=== PATIENT | female | born 1975 | race Asian ===

== ENCOUNTER 2019-12-31 21:03 | Observation (INO) | payer OTHER ==
[~2019-12-31] VITALS: Ht 172.7 cm; Wt 72.6 kg
== END 2019-12-31 23:21 | disposition home or self-care (01) ==
LOC: SPU 21:03
PROVIDERS: ADMIT Obstetrics & Gynecology; ATTEND Obstetrics & Gynecology
DX: O46.92 Antepartum hemorrhage, unspecified, second trimester (principal); Z3A.20 20 weeks gestation of pregnancy
CPT/HCPCS: 76805; 81002; G0378